=== PATIENT | female | born 1940 | race Two or more races ===

== ENCOUNTER 2019-02-27 09:24 | Emergency (ER) | payer OTHER ==
[~2019-02-27] VITALS: Ht 134.6 cm; Wt 44.5 kg
[2019-02-27] MEDS ORDERED: SYNTHROID50 MCG (10:03)
[2019-02-27] MEDS ORDERED: TUSNEL PEDIATR118 ML (10:04)
[2019-02-27] MEDS ORDERED: PROTONIX40 MG (10:04)
[2019-02-27] MEDS ORDERED: LISINOPRIL20 MG (10:05)
== END 2019-02-27 12:53 | disposition home or self-care (01) ==
LOC: ER 09:24
DX: J06.9 Acute upper respiratory infection, unspecified (principal)